=== PATIENT | male | born 1985 | race Caucasian/White ===

== ENCOUNTER 2024-07-10 08:26 | Outpatient (OUT) | payer OTHER, SELFPAY ==
--- NOTE | 2024-07-10 08:31 | XR_ITS ---
[place] [id number] Patient Name: YIMI CHILDERS MRN: [id number] date: 1985 Sex: M Assigned Patient Location: RAD Current Patient Location: [facility] Accession/Order Number: [id number] Exam Date: 07/11/2024 13:13 Report Date: 07/11/2024 13:15 At the request of: ATIF HAMMER DPM Procedure: XR foot KAYODE min 3V XR foot KAYODE min 3V 07/10/2024 8:52 AM SIGNS AND SYMPTOMS: ^Bilateral foot pain PROTOCOL: Frontal, lateral and bilateral leg radiographs of the bilateral feet COMPARISON: None FINDINGS: The bones are in anatomic alignment. The joint spaces are preserved. There is no evidence of fracture or dislocation. No significant soft tissue swelling. XR/XR foot KAYODE min 3V IMPRESSION: No acute bony injury. No significant degenerative change or soft tissue swelling Impression dictated by: Doe Geiger M.D.07/11/2024 1:15 PM Dictation Location: [place] [address] Electronically authenticated by: [id number] Y Date: 07/11/2024 13:15
== END 2024-07-10 08:27 | disposition home or self-care (01) ==
PROVIDERS: Visit Provider Podiatrist Foot & Ankle Surgery
DX: M79.671 Pain in right foot (principal); M79.672 Pain in left foot
CPT/HCPCS: 73630